=== PATIENT | male | born 1970 | race African-American/Black ===

== ENCOUNTER 2022-05-28 08:42 | Emergency (ER) | payer SELFPAY ==
[2022-05-28 09:38] VITALS: BP 125/80
[2022-05-28 10:13] LABS: Basophils # (Auto) 0.1 K/mm3 (0.0-0.1); Basophils % (Auto) 0.9 % (0.0-1.8); Eosinophils # (Auto) 0.5 K/mm3 (0.0-0.4); Eosinophils % (Auto) 9.3 % (0.0-4.3); Hematocrit 35.9 % (35.5-45.6); Hemoglobin 12.1 gm/dl (11.8-15.2); Lymphocytes # (Auto) 2.2 K/mm3 (1.2-5.4); Lymphocytes % (Auto) 38.7 % (13.4-35.0); Mean Corpuscular HGB Conc 34 % (32-34); Mean Corpuscular Volume 97 fl (84-94); Monocytes # (Auto) 0.5 K/mm3 (0.0-0.8); Monocytes % (Auto) 9.7 % (0.0-7.3); Platelet Count 177 K/mm3 (140-440); Red Blood Count 3.71 M/mm3 (3.65-5.03); Red Cell Distribution Width 14.3 % (13.2-15.2)
--- NOTE | 2022-05-28 10:27 | Emergency Department Report ---
- General Chief complaint: Skin/Abscess/Foreign Body Stated complaint: FACE/SORE/SCAR Time Seen by Provider: 05/28/22 09:32 Source: patient Mode of arrival: Ambulatory Limitations: No Limitations - History of Present Illness Initial comments: 51 yo M who present with skin rash above his upper lip just in front of his nose x the last 2-3 days. Pt was seen at Urgent Care and was discharged home on bacitricin topical antibiotics that he says is not working effectively. He rated his pain and pressure from this area as 8/10 in severity. No fever or chills reported. No other modifying or associated factors reported. MD complaint: rash - Related Data Previous Rx's Medication Instructions Recorded Last Taken Type Clindamycin [Clindamycin CAP] 300 mg PO Q8HR 10 Days #60 capsule 05/28/22 Unknown Rx NS Ketorolac [Toradol] 10 mg PO Q6H PRN 5 Days #20 tab NS 05/28/22 Unknown Rx Allergies Allergy/AdvReac Type Severity Reaction Status Date / Time No Known Allergies Allergy Unverified 05/28/22 09:12 Abscess Boil HPI - HPI Chief Complaint: Skin/Abscess/Foreign Body Stated Complaint: FACE/SORE/SCAR Time Seen by Provider: 05/28/22 09:32 Home Medications: Previous Rx's Medication Instructions Recorded Last Taken Type Clindamycin [Clindamycin CAP] 300 mg PO Q8HR 10 Days #60 capsule 05/28/22 Unknown Rx NS Ketorolac [Toradol] 10 mg PO Q6H PRN 5 Days #20 tab NS 05/28/22 Unknown Rx Allergies/Adverse Reactions: Allergies Allergy/AdvReac Type Severity Reaction Status Date / Time No Known Allergies Allergy Unverified 05/28/22 09:12 ED Review of Systems ROS: Stated complaint: FACE/SORE/SCAR Other details as noted in HPI ENT: other (pustular rash on the upper lip and nose ) Skin: rash, other (pustular rash on the upper lip and nose ) ED Past Medical Hx - Past Medical History Previous Medical History?: No - Surgical History Past Surgical History?: No - Social History Smoking Status: Current Every Day Smoker Substance Use Type: Alcohol - Medications Home Medications: Home Medications Medication Instructions Recorded Confirmed Last Taken Type Clindamycin [Clindamycin CAP] 300 mg PO Q8HR 10 Days #60 capsule 05/28/22 Unknown Rx NS Ketorolac [Toradol] 10 mg PO Q6H PRN 5 Days #20 tab NS 05/28/22 Unknown Rx ED Physical Exam - General Limitations: No Limitations General appearance: alert, in no apparent distress - Head Head exam: Present: normal inspection - Eye Eye exam: Present: normal appearance Pupils: Present: normal accommodation - ENT ENT exam: Present: normal orophraynx, other (pustular rash on the upper lip and nose ) - Neck Neck exam: Present: normal inspection, full ROM. Absent: tenderness, lymphadenopathy - Respiratory Respiratory exam: Present: normal lung sounds bilaterally. Absent: respiratory distress, accessory muscle use - Cardiovascular Cardiovascular Exam: Present: regular rate, normal rhythm, normal heart sounds - GI/Abdominal GI/Abdominal exam: Present: soft, normal bowel sounds. Absent: tenderness - Extremities Exam Extremities exam: Present: normal inspection. Absent: tenderness - Back Exam Back exam: Absent: tenderness - Neurological Exam Neurological exam: Present: alert - Psychiatric Psychiatric exam: Present: normal affect - Skin Skin exam: Present: rash, erythema, vesicles, other (pustular rash on the upper lip and nose ) ED Course Vital Signs 05/28/22 05/28/22 09:04 09:31 Temperature 97.5 F L 97.9 F Pulse Rate 99 H 88 Respiratory 16 14 Rate Blood Pressure 125/80 Blood Pressure 117/73 125/80 [Right] O2 Sat by Pulse 98 99 Oximetry ED Medical Decision Making - Lab Data Result diagrams: 05/28/22 09:30 - Medical Decision Making pustular rash on the upper lip and nose -- Critical care attestation.: If time is entered above; I have spent that time in minutes in the direct care of this critically ill patient, excluding procedure time. ED Disposition Clinical Impression: Impetigo follicularis Disposition: HOME / SELF CARE / HOMELESS Is pt being admited?: No Does the pt Need Aspirin: No Condition: Stable Instructions: Impetigo, Adult Additional Instructions: Take your antibiotic as prescribe to continue to help your symptoms Continue and complete your topical antibiotics as prescribed for the next 5 days three times per day Call and follow up with your doctor in the next 3-5 days for reevaluation and progress Please do not hesitate to call or return to ED if your symptoms worsen Prescriptions: Clindamycin [Clindamycin CAP] 300 mg PO Q8HR 10 Days #60 capsule NS Ketorolac [Toradol] 10 mg PO Q6H PRN 5 Days #20 tab NS PRN Reason: Pain Referrals: YUMIKO RESTREPO MD [Referring] - 3-5 Days Time of Disposition: 10:33
[2022-05-28 10:34] LABS: Alanine Aminotransferase 26 units/L (7-56); Albumin 3.7 g/dL (3.9-5); Blood Urea Nitrogen 14 mg/dL (9-20); Calcium 8.7 mg/dL (8.4-10.2); Hemolysis Index 12
[2022-05-28 10:58] LABS: BUN/Creatinine Ratio 20
== END 2022-05-28 11:26 | disposition home or self-care (01) ==
LOC: ED 08:42
DX: L01.02 Bockhart's impetigo (principal); F17.200 Nicotine dependence, unspecified, uncomplicated; Z72.89 Other problems related to lifestyle; Z79.899 Other long term (current) drug therapy
CPT/HCPCS: 36415; 80053; 85025; 99283